=== PATIENT | female | born 1935 | race Caucasian/White ===

== ENCOUNTER → 2020-02-11 | Outpatient (CLI) | payer MEDICARE ==
[~2020-02-11] MED LIST: ELIQUIST; LEVOTHYROXINE25 MCG PO; METOPROLOL SUCC25 MG PO; PROPAFENONE HC325 MG PO; [UNRECOGNIZED DRUG - OTHER]; apixaban PO
--- NOTE | 2020-02-11 08:56 | Diagnostic Imaging Report ---
Exam: CHEST 2 VIEWS Date: 02/11/2020 8:52 AM INDICATION: ^[id number] ^[id number] ^COUGH Comparison: None FINDINGS: Lines/Tubes:Loop recorder is identified projecting over the anterior soft tissues of the chest. Lungs:The lungs are well inflated. No focal consolidation or pulmonary edema. Pleura:No pleural effusion. No pneumothorax. Heart/Mediastinum:The cardiomediastinal silhouette is normal in size and contour. Thoracic aorta is slightly tortuous. Bones/Soft Tissues: No acute osseous abnormality. Mild to moderate multilevel degenerative changes of the spine are noted. Upper abdomen: Unremarkable. IMPRESSION: Negative for acute intrathoracic process. Signed by: Manuel Rodriguez MD on 02/11/2020 8:53 AM
== END ==
LOC: RAD 08:07
PROVIDERS: ATTEND Otolaryngology
DX: R05 Cough (principal)
CPT/HCPCS: 71046